=== PATIENT | male | born 1955 | race African-American/Black ===

== ENCOUNTER → 2016-04-12 | Emergency (ER) | payer OTHER ==
[~2016-04-12] VITALS: Ht 185.4 cm; Wt 106.6 kg
[~2016-04-12] MED LIST: ALBUTEROL SULF8.5 GM INH; Albuterol ud Inhalation HHN ONE; CEPHALEXIN500 MG ORAL; CHLORPHENIRAMINE4 M1 PO; DOXYCYCLINE MO100 MG ORAL; HYDROCODON-ACE1 EA15 ORAL; IBUPROFEN600 MG ORAL; Ipratropium 0.02% Inh Soln 2.5ml UD HHN ONE; LEVAQUIN500 MG ORAL; Levofloxacin 500mg tab ORAL ONE; NKM; NORCO 5-325 TA1 EACH ORAL; NORVASC10 MG ORAL; PROMETHAZINE-C118 M1 ORAL; TRAMADOL HCL50 MG ORAL; VALIUM10 MG ORAL
--- NOTE | 2016-04-12 06:09 | Emergency Room Report ---
History of Present Illness General Chief Complaint: Headache Source: Patient Present Illness HPI Today patient presents with 2 days of upper respiratory illness. He's been having chest pain and aching with coughing green phlegm. Also he has a headache now with congestion - pain 9/10, constant and pressure. He did not get a flu shot last year. He also hears himself wheezing. He denies any history of asthma but used an inhaler many years ago. The patient's taken Coricidin D. Yesterday took some Motrin or aspirin products. 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 No feel safe to work the [employer] today. No NVD, dysuria, rashes, change vision. Slight sore throat. Some muscle aches. H/O HTN and has not been taking his medication. 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 Reviewed Nursing Documentation: PMH: Agreed, PSxH: Agreed Nursing Documentation-PMH Past Medical History: No Stated History Hx Hypertension: Yes Review of Systems All Other Systems: negative except mentioned in HPI Physical Exam Vital Signs Date Time Temp Pulse Resp B/P Pulse Ox O2 Delivery O2 Flow Rate FiO2 04/12/16 05:53 97.7 75 16 163/92 96 Room Air Sp02 EP Interpretation: reviewed, normal General Appearance: well appearing, no apparent distress, GCS 15 Head: normocephalic Eyes: bilateral eye EOMI, bilateral eye PERRL, bilateral eye normal inspection ENT: moist mucus membranes Neck: supple Respiratory: lungs clear, normal breath sounds Cardiovascular #1: regular rate, rhythm Cardiovascular #2: 2+ radial (R) Gastrointestinal: normal inspection, normal bowel sounds, non tender, no mass, non-distended Musculoskeletal: back normal, gait/station normal, normal range of motion Neurologic: alert, oriented x3 Skin: normal inspection, warm/dry Medical Decision Making Diagnostic Impression: Primary Impression: Sinusitis Qualified Codes: J01.80 - Other acute sinusitis Additional Impressions: Headache Qualified Codes: G44.89 - Other headache syndrome Bronchospasm with bronchitis, acute ER Course Patient presents with upper respiratory symptomatology chest pain. Fairly complicated patient with hypertension as risk factor. He needs evaluation with EKG and influenza swab. The patient has bronchospasm and will be treated with albuterol at this time. Also Motrin will be started as an analgesic. It depends on what EKG shows as to whether he gets further cardiac evaluation. Based on his exam and chest x-ray is not indicated at this time. Pain will be treated with motrin. EKG normal. Significant improvement with treatment. BP still high and discussed taking his medication. Patient stable for outpatient observation and treatment. Microbiology Date/Time Source Procedure Growth Status 04/12/16 06:05 Nasal Nares Influenza Types A,B Antigen (NAYELY) - Final Complete EKG Diagnostic Results Rate: normal Rhythm: NSR ST Segments: no acute changes Rhythm Strip Diag. Results EP Interpretation: yes Rhythm: NSR, no PVC's, no ectopy Last Vital Signs Date Time Temp Pulse Resp B/P Pulse Ox O2 Delivery O2 Flow Rate FiO2 04/12/16 07:21 97.7 71 19 164/94 97 Room Air 04/12/16 06:40 21 Status: improved Disposition: HOME, SELF-CARE Condition: Improved Scripts Chlorpheniramine Maleate (Chlorpheniramine Maleate) 4 Mg Tablet 4 MG PO Q6HR Y for congestion, #16 TAB Prov: Baldomero Hernandez M.D. 04/12/16 Levofloxacin* (LEVAQUIN*) 500 Mg Tablet 500 MG ORAL DAILY, #7 TAB Prov: Baldomero Hernandez M.D. 04/12/16 Albuterol Sulfate* (ALBUTEROL SULFATE MDI*) 8.5 Gm Hfa.aer.ad 2 PUFF INH Q6H, #1 INH 0 Refills Prov: Baldomero Hernandez M.D. 04/12/16 Codeine/Promethazine Hcl* (PROMETHAZINE-CODEINE SYRUP*) 118 Ml Syrup 5 ML ORAL Q6H Y for For Cough, #60 ML 0 Refills Prov: Baldomero Hernandez M.D. 04/12/16 Ibuprofen* (MOTRIN*) 600 Mg Tablet 600 MG ORAL Q6H Y for For Pain, #20 TAB Prov: Baldomero Hernandez M.D. 04/12/16 Baldomero Hernandez M.D. Apr 12, 2016 06:09
[2016-04-12 06:24] VITALS: BP 164/94
[2016-04-12 07:20] VITALS: BP 159/84
[2016-04-12 07:21] VITALS: BP 164/94
--- NOTE | 2016-04-14 08:46 | Cardiology Report ---
APPROVED REPORT EKG Measurement Heart [id number] CT [id number] Normal sinus rhythm Possible Anterior infarct, age undetermined Abnormal ECG
== END | disposition home or self-care (01) ==
LOC: EMR 06:30
DX: J32.9 Chronic sinusitis, unspecified (principal); R51 Headache; R07.9 Chest pain, unspecified; I10 Essential (primary) hypertension
CPT/HCPCS: 86710; 93005; 94640; 94664; 99284

== ENCOUNTER 2016-05-06 20:02 | Emergency (ER) | payer OTHER ==
[~2016-05-06] VITALS: Ht 185.4 cm; Wt 108.9 kg
[~2016-05-06 20:02] MED LIST changes: -Albuterol ud Inhalation HHN ONE; -Ipratropium 0.02% Inh Soln 2.5ml UD HHN ONE; -Levofloxacin 500mg tab ORAL ONE
[2016-05-06] MEDS ORDERED: Tubing IV Cassette IV ONE (20:29)
[2016-05-06] MEDS ORDERED: Morgan Lens TOPIC ONE (20:30)
[2016-05-06] MEDS ORDERED: NS Irrig 1000ml 1,000 ML IRRIG ONE ×2 (20:30→22:00)
[2016-05-06] MEDS ORDERED: Tetracaine 0.5% Opth Soln BOTH EYES ONE (20:30)
--- NOTE | 2016-05-06 22:31 | Emergency Room Report ---
History of Present Illness General Chief Complaint: Eye Problems Present Illness HPI The patient is a 61-year-old male presenting with bilateral eye burning. Patient states that he was moving a refrigerator that was recently cleaned with bleach and rubbed his eyes and felt immediate burning. Pain is described as a 10 out of 10 sensation and does not radiate. Pain worse when eyes are closed. The patient states that he immediately flushed out both eyes with water. The patient denies any other symptoms including dizziness, blurred vision, N, V, F, chills (BAKARI LANCASTER P.A.) Allergies: Coded Allergies: No Known Allergies (Unverified , 10/24/15) Patient History Past Medical History: see triage record Pertinent Family History: none Reviewed Nursing Documentation: PMH: Agreed, PSxH: Agreed (BAKARI LANCASTER P.A.) Nursing Documentation-PMH Hx Hypertension: Yes (BAKARI LANCASTER P.A.) Review of Systems All Other Systems: negative except mentioned in HPI (BAKARI LANCASTER P.A.) Physical Exam Vital Signs Date Time Temp Pulse Resp B/P Pulse Ox O2 Delivery O2 Flow Rate FiO2 05/06/16 20:12 98.2 77 18 172/109 100 Room Air Sp02 EP Interpretation: reviewed, normal General Appearance: alert, GCS 15, non-toxic, mild distress Head: normocephalic, atraumatic Eyes: bilateral eye EOMI, bilateral eye PERRL, bilateral eye Scleral Injection , bilateral eye photophobia, bilateral eye visual acuity - 20/25 bilat ENT: hearing grossly normal, normal pharynx, no angioedema, normal voice Neck: full range of motion, supple/symm/no masses Neurologic: alert, oriented x3, responsive, motor strength/tone normal, sensory intact, speech normal Psychiatric: judgement/insight normal, memory normal, mood/affect normal, no suicidal/homicidal ideation Reflexes: 3+ bicep (R), 3+ bicep (L), 3+ tricep (R), 3+ tricep (L), 3+ knee (R) , 3+ knee (L) Skin: normal color, no rash, warm/dry, well hydrated Lymphatic: no adenopathy (BAKARI LANCASTER P.A.) Medical Decision Making PA Attestation Dr. Hernandez is my supervising physician. Patient management was discussed with my supervising physician (BAKARI LANCASTER) Diagnostic Impression: Primary Impression: Chemical conjunctivitis of both eyes ER Course The patient is a 61-year-old male presenting with bilateral eye burning Differential diagnoses considered but not limited to irritant conjunctivitis, allergic conjunctivitis, bacterial conjunctivitis, viral conjunctivitis PE: Mild distress. Eyes: bilateral injection and excessive tearing. PERRL. EOMI. No lid edema. 500mL of NS used with denise lenses of both eyes. pH is checked after first irrigation with pH of R eye 7.0 and pH of L eye 8.0 500mL of More irrigation is ordered for bilat eyes. pH now 7.0 bilaterally. Tetracaine was used for anaesthesia. Motrin given for headache. Pt is feeling better overall and will be DC'ed home. Pt advised he needs to see manpower development manager KRISTY. ER precautions given. (BAKARI LANCASTER) Last Vital Signs Date Time Temp Pulse Resp B/P Pulse Ox O2 Delivery O2 Flow Rate FiO2 05/06/16 20:12 98.2 77 18 172/109 100 Room Air Status: improved (BAKARI LANCASTER) Last Vital Signs Date Time Temp Pulse Resp B/P Pulse Ox O2 Delivery O2 Flow Rate FiO2 05/06/16 23:13 98.3 70 14 176/114 96 Room Air (Baldomero Hernandez M.D.) Disposition: HOME, SELF-CARE Condition: Improved Referrals: [facility],REFERRING (PCP) BAKARI LANCASTER May 06, 2016 22:31 Baldomero Hernandez M.D. May 12, 2016 01:59
[2016-05-06 22:47] VITALS: BP 187/116
[2016-05-06 23:12] VITALS: BP 176/114
[2016-05-06 23:13] VITALS: BP 176/114
== END 2016-05-06 23:14 | disposition home or self-care (01) ==
LOC: EMR 20:53
DX: H10.213 Acute toxic conjunctivitis, bilateral (principal); I10 Essential (primary) hypertension
CPT/HCPCS: 99282

== ENCOUNTER 2016-11-01 18:17 | Emergency (ER) | payer OTHER ==
[~2016-11-01] VITALS: Ht 185.4 cm; Wt 104.3 kg
--- NOTE | 2016-11-01 19:15 | Emergency Room Report ---
History of Present Illness General Chief Complaint: Eye Problems Source: Patient Present Illness HPI 61 YO Male presents to the ED c/o : Bilateral eye redness, discharge, and increased lacrimation x 3 days. Pt states initially he had moderate itching and lacrimation and believed his sx were due to his moderate allergies, however pt. reports onset of thick sticky d/c bilaterally this am. denies trauma to the eyes , denies fb sensation, pt. reports mild photophobia, denies eye pain, reports burning discomfort. pt. also reports moderate rhinorrhea and sneezing with no relief from Claritin. denies rashes, fevers, chills, cough, or sore throat. Denies: changes or Loss of vision, Floaters, Flashing lights, or Diplopia/ blurry vision. Pt denies contact lens use. Allergies: Coded Allergies: POLLEN EXTRACTS (Verified Allergy, Unknown, 11/01/16) Patient History Past Medical History: see triage record Past Surgical History: none Pertinent Family History: none Immunizations: UTD Reviewed Nursing Documentation: PMH: Agreed, PSxH: Agreed Nursing Documentation-PMH Past Medical History: No Stated History Hx Hypertension: Yes Review of Systems All Other Systems: negative except mentioned in HPI Physical Exam Vital Signs Date Time Temp Pulse Resp B/P (MAP) Pulse Ox O2 Delivery O2 Flow Rate FiO2 11/01/16 18:41 98.1 80 18 156/90 97 Room Air Sp02 EP Interpretation: reviewed, normal General Appearance: no apparent distress, alert, GCS 15, non-toxic Head: normocephalic, atraumatic Eyes: bilateral eye normal inspection, bilateral eye PERRL, bilateral eye Scleral Injection ENT: hearing grossly normal, normal pharynx, no angioedema, normal voice, nasal congestion - rhinorrhea bilaterally. Neck: full range of motion, supple/symm/no masses Respiratory: lungs clear, normal breath sounds, speaking full sentences Cardiovascular #1: regular rate, rhythm Rectal: deferred Genitourinary: normal inspection, no CVA tenderness Musculoskeletal: back normal, gait/station normal, normal range of motion, non- tender, decreased range of motion Neurologic: alert, oriented x3, responsive, motor strength/tone normal, sensory intact, speech normal Psychiatric: judgement/insight normal, memory normal, mood/affect normal Skin: normal color, no rash, warm/dry, well hydrated Lymphatic: no adenopathy Medical Decision Making PA Attestation Dr. Sena is my supervising Physician whom patient management has been discussed with. Diagnostic Impression: Primary Impression: Conjunctivitis Qualified Codes: H10.33 - Unspecified acute conjunctivitis, bilateral Additional Impression: Multiple environmental allergies ER Course 61 YO Male presents to the ED c/o : Bilateral eye redness, discharge, and increased lacrimation x 3 days. Pt states initially he had moderate itching and lacrimation and believed his sx were due to his moderate allergies, however pt. reports onset of thick sticky d/c bilaterally this am. denies trauma to the eyes , denies fb sensation, pt. reports mild photophobia, denies eye pain, reports burning discomfort. pt. also reports moderate rhinorrhea and sneezing with no relief from Claritin. denies rashes, fevers, chills, cough, or sore throat. Denies: changes or Loss of vision, Floaters, Flashing lights, or Diplopia/ blurry vision. Pt denies contact lens use. Ddx considered but are not limited to: corneal abrasion, acute glaucoma, globe rupture, FB, Corneal Ulcer, conjunctivitis. Iridis, orbital cellulitis,keratitis , sinusitis Vital signs: are WNL, pt. is afebrile H&PE are most consistent with: bacterial conjunctivitis, and seasonal allergies ORDERS: none at this time. ED INTERVENTIONS: none at this time. DISCHARGE: At this time pt. is stable for d/c to home. Will provide printed patient care instructions, and any necessary prescriptions. Care plan and follow up instructions have been discussed with the patient prior to discharge. Last Vital Signs Date Time Temp Pulse Resp B/P (MAP) Pulse Ox O2 Delivery O2 Flow Rate FiO2 11/01/16 18:41 98.1 80 18 156/90 97 Room Air Disposition: HOME, SELF-CARE Condition: Stable Scripts Cetirizine Hcl* (ZYRTEC*) 10 Mg Tablet 10 MG ORAL DAILY for 30 Days, #30 TAB 0 Refills Prov: Keiry Cano P.A. 11/01/16 Epinastine Hcl (EPINASTINE HCL) 5 Ml Drops 1 DROP OP TID, #5 ML Prov: Keiry Cano P.A. 11/01/16 Ofloxacin (OCUFLOX) 5 Ml Drops 2 DROP OP BID for 5 Days, #5 ML Prov: Keiry Cano 11/01/16 Patient Instructions: Allergies, Bacterial Conjunctivitis, [id number] Additional Instructions: Take medications as directed. Follow up with Rug Cleaning Supervisor in 3-5 days Follow up with a Primary Care Provider in 3-5 days, even if your symptoms have resolved. --Please review list of primary care clinics, if you do not already have a primary care provider Return sooner to ED if new symptoms occur, or current symptoms become worse. - Please note that this Emergency Department Report was dictated using [employer] Angels[employer] encoding center manager technology software, occasionally this can lead to erroneous entry secondary to interpretation by the dictation equipment. Keiry Cano Nov 01, 2016 19:15
[2016-11-01] MEDS ORDERED: OCUFLOX5 ML OP (19:16)
[2016-11-01] MEDS ORDERED: ZYRTEC10 MG ORAL (19:16)
[2016-11-01] MEDS ORDERED: EPINASTINE HCL5 ML OP (19:16)
[2016-11-01 19:38] VITALS: BP 156/90
== END 2016-11-01 19:38 | disposition home or self-care (01) ==
LOC: EMR 19:18
DX: H10.33 Unspecified acute conjunctivitis, bilateral (principal); T78.49XA Other allergy, initial encounter; I10 Essential (primary) hypertension; X58.XXXA Exposure to other specified factors, initial encounter; Y92.9 Unspecified place or not applicable
CPT/HCPCS: 99284